=== PATIENT | male | born 1940 ===

== ENCOUNTER 2024-04-26 09:17 | Outpatient (CLI) | payer OTHER | END 2024-04-26 09:19 | disposition home or self-care (01) | LOC: TOM 09:17 | PROVIDERS: ATTEND Internal Medicine Gastroenterology | DX: C18.9 Malignant neoplasm of colon, unspecified (principal); K57.90 Diverticulosis of intestine, part unspecified, without perforation or abscess without bleeding; K64.9 Unspecified hemorrhoids ==